=== PATIENT | female | born 1995 | race Caucasian/White ===

== ENCOUNTER → 2018-04-07 | Outpatient (REF) | payer OTHER | LOC: M LAB REF 10:02 | PROVIDERS: ATTEND Physician Assistant | DX: J09.X2 Influenza due to identified novel influenza A virus with other respiratory manifestations (principal) ==

== ENCOUNTER → 2018-04-12 | Outpatient (CLI) | payer OTHER ==
[2018-04-12 17:15] LABS: MEAN CORPUSCULAR HEMOGLOBIN 30.7 pg (27.0-33.0); MEAN CORPUSCULAR HGB CONC 34.6 g/dl (32.0-36.5); MEAN CORPUSCULAR VOLUME 88.6 fl (80.0-96.0); PLATELET COUNT, AUTOMATED 333 10^3/uL (150-450); RED BLOOD COUNT 5.87 10^6/uL (4.00-5.40); WHITE BLOOD COUNT 9.5 10^3/uL (4.0-10.0)
[2018-04-12 17:45] LABS: ALBUMIN 4.5 GM/DL (3.2-5.2); ALT/SGPT 75 U/L (12-78); AMYLASE 55 U/L (25-115); BILIRUBIN,TOTAL 0.9 MG/DL (0.2-1.0); BLOOD UREA NITROGEN 9 MG/DL (7-18); CALCIUM LEVEL 9.2 MG/DL (8.5-10.1); CARBON DIOXIDE LEVEL 23 MEQ/L (21-32); CHLORIDE LEVEL 97 MEQ/L (98-107); FREE T4 2.26 NG/DL (0.76-1.46); GLOMERULAR FILTRATION RATE > 60.0 (>60); GLUCOSE, FASTING 78 MG/DL (70-100); LIPASE 244 U/L (73-393); SODIUM LEVEL 135 MEQ/L (136-145); TOTAL PROTEIN 9.1 GM/DL (6.4-8.2)
[2018-04-12 18:28] LABS: ATYPICAL LYMPH 6 % (0-5); EOSINOPHILS 2 % (0-5); LYMPHOCYTES 30 % (16-52); MONOCYTES 10 % (0-8); NEUTROPHILS 51 % (35-75)
[2018-04-12 18:29] LABS: PLATELET ESTIMATE NORMAL (NORMAL)
== END ==
LOC: M WUC 14:43
PROVIDERS: ATTEND Physician Assistant
DX: R11.2 Nausea with vomiting, unspecified (principal)

== ENCOUNTER 2020-02-19 11:39 | Emergency (ER) | payer BC, OTHER, MEDICAID ==
[~2020-02-19] VITALS: Ht 160 cm; Wt 75.8 kg
[2020-02-19 13:03] LABS: HEMATOCRIT 38.5 % (36.0-47.0); HEMOGLOBIN 12.7 g/dl (12.0-15.5); PLATELET COUNT, AUTOMATED 307 10^3/uL (150-450); RED BLOOD COUNT 4.23 10^6/uL (4.00-5.40); WHITE BLOOD COUNT 11.3 10^3/uL (4.0-10.0)
[2020-02-19] MEDS ORDERED: NS 1,000 ML IV ONE (13:30)
[2020-02-19] MEDS ORDERED: ONDANSETRON 4MG/2ML VIAL IV ONE (13:30)
[2020-02-19 13:55] LABS: BLOOD UREA NITROGEN 7 MG/DL (7-18); CALCIUM LEVEL 9.6 MG/DL (8.5-10.1); CARBON DIOXIDE LEVEL 22 MEQ/L (21-32); CHLORIDE LEVEL 102 MEQ/L (98-107); GLOMERULAR FILTRATION RATE > 60.0 (>60); GLUCOSE, FASTING 80 MG/DL (70-100); HCG, SERUM QUANTITATIVE 106387 MIU/ML; POTASSIUM SERUM 4.2 MEQ/L (3.5-5.1); SODIUM LEVEL 135 MEQ/L (136-145)
[2020-02-19 14:31] VITALS: BP 108/69
[2020-02-19] MEDS ORDERED: ONDA8TAB8 PO (14:34)
[2020-02-19] MEDS ORDERED: SUCR1TA PO (14:34)
--- NOTE | 2020-02-20 13:28 | ECGEPIP ---
[facility] - ED Test Date: 2020-02-19 Pat Name: YAHIR CAMERON Department: Room: - Gender: Female Top Precipitator Operator: CIERA : 1995 Requested By: CATRACHITO Damian Order Number: [id number] Reading MD: Nevin Travis Measurements Intervals Dennis Rate: 61 P: 40 FL: 125 QRS: 27 QRSD: 85 T: 15 QT: 391 QTc: 397 Interpretive Statements SINUS RHYTHM WITH MARKED SINUS ARRHYTHMIA No prior Electronically Signed on 02-20-2020 13:28:00 EST by Nevin Travis
== END 2020-02-19 14:43 | disposition home or self-care (01) ==
LOC: M ED 11:39
DX: O21.9 Vomiting of pregnancy, unspecified (principal); O99.331 Smoking (tobacco) complicating pregnancy, first trimester; O99.311 Alcohol use complicating pregnancy, first trimester; Z3A.09 9 weeks gestation of pregnancy; Z88.8 Allergy status to other drugs, medicaments and biological substances
CPT/HCPCS: 80048; 84702; 85027; 93005; 96361; 96374; 99284; J2405

== ENCOUNTER → 2020-03-06 | Outpatient (CLI) | payer BC, OTHER, MEDICAID ==
[~2020-03-06] MED LIST: ONDA8TAB8 PO; SUCR1TA PO
[2020-03-06 17:42] LABS: BASO % 0.2 % (0.0-1.0); EOS # 0.2 10^3/uL (0.0-0.5); EOS % 1.7 % (0.0-3.0); HEMATOCRIT 36.7 % (36.0-47.0); HEMOGLOBIN 12.2 g/dl (12.0-15.5); LYMPH % 20.5 % (24.0-44.0); MEAN CORPUSCULAR HEMOGLOBIN 30.8 pg (27.0-33.0); MEAN CORPUSCULAR HGB CONC 33.2 g/dl (32.0-36.5); MEAN CORPUSCULAR VOLUME 92.7 fl (80.0-96.0); MONO # 0.6 10^3/uL (0.0-0.8); MONO % 6.2 % (0.0-5.0); NEUTROPHILS # 7.1 10^3/uL (1.5-8.5); PLATELET COUNT, AUTOMATED 242 10^3/uL (150-450); RED BLOOD COUNT 3.96 10^6/uL (4.00-5.40)
[2020-03-06 18:57] LABS: HIV 1&2 SCREEN CENTAUR NEGATIVE (NEGATIVE)
== END ==
LOC: M LAB 16:35
PROVIDERS: ATTEND Advanced Practice Midwife
DX: O03.9 Complete or unspecified spontaneous abortion without complication (principal); Z3A.00 Weeks of gestation of pregnancy not specified

== ENCOUNTER 2020-03-12 08:39 | Day surgery (SDC) | payer BC, OTHER, MEDICAID ==
[~2020-03-12] VITALS: Ht 160 cm; Wt 77.6 kg
--- OUTSIDE RECORDS SUMMARY | 2020-03-12 08:48 | CCD ---
Author Author [facility] Organization [facility] Address Unknown Phone Unavailable Support Name Relationship Address Phone DPAO Next Of Kin [address] [place] [address] RCIL Next Of Kin [address] [place] [address] RIGO CAMERON Next Of Kin [address] [place] [address] ST Next Of Kin Unknown Unavailable ETH[place] [address] Rigo Cameron ECON [address] [place], [place] Unavailable Re-disclosure Warning The records that you are about to access may contain information from federally-assisted alcohol or drug abuse programs. If such information is present, then the following federally mandated warning applies: This information has been disclosed to you from records protected by federal confidentiality rules (42 CFR part 2). The federal rules prohibit you from making any further disclosure of this information unless further disclosure is expressly permitted by the written consent of the person to whom it pertains or as otherwise permitted by 42 CFR part 2. A general authorization for the release of medical or other information is NOT sufficient for this purpose. The Federal rules restrict any use of the information to criminally investigate or prosecute any alcohol or drug abuse patient.The records that you are about to access may contain highly sensitive health information, the redisclosure of which is protected by Article 27-F of the [facility] Public Health law. If you continue you may have access to information: Regarding HIV / AIDS; Provided by facilities licensed or operated by the [facility] Office of Mental Health; or Provided by the [facility] Office for People With Developmental Disabilities. If such information is present, then the following [facility] mandated warning applies: This information has been disclosed to you from confidential records which are protected by state law. State law prohibits you from making any further disclosure of this information without the specific written consent of the person to whom it pertains, or as otherwise permitted by law. Any unauthorized further disclosure in violation of state law may result in a fine or detention sentence or both. A general authorization for the release of medical or other information is NOT sufficient authorization for further disc losure. Family History Family Member Name Family Member Gender Family Member Status Date o f Status Description Data Source(s) Unknown Unknown Problem MEDENT ([facility]) Unknown Unknown Problem MEDENT ([facility]) Encounters Encounter Providers Location Date Indications Data Source(s ) Unknown [address] [facility] [address] 03/06/2020 12:00:00 AM EST eCW1 ([facility]) Unknown [address] [facility] [address] 03/06/2020 12:00:00 AM EST eCW1 ([facility]) (YUDELKA SILVERMAN) [facility] OB Visit [address] [place] [address] 02/27/2020 12:00:00 AM EST eCW1 ([facility]) Medications Medication Brand Name Start Date Product Form Dose Route Admi nistrative Instructions Pharmacy Instructions Status Indications Reaction Description Data Source(s) Misoprostol 0.2 MG Oral Tablet Misoprostol 200 MCG Misoprost ol 200 MCG 03/06/2020 12:00:00 AM EST 3.0 {tablets} active Misoprostol 200 MCG eCW1 ([facility]) Misoprostol 0.2 MG Oral Tablet Misoprostol 200 MCG Misoprost ol 200 MCG 03/06/2020 12:00:00 AM EST 3.0 {tablets} active Misoprostol 200 MCG eCW1 ([facility]) 1 gram 02/19/2020 12:00:00 AM EST tablet 40 TAKE ONE TABLET BY MOUTH FOUR TIMES A DAY TAKE ONE TABLET BY MOUTH FOUR TIMES A DAY SOLD: 02/19/2020 [facility] 8 mg 02/19/2020 12:00:00 AM EST tablet,disintegrating [address] ONE TABLET UNDER THE TONGUE EVERY 6 HOURS NEEDED FOR NAUSEA AND VOMITING PLACE ONE TABLET UNDER THE TONGUE EVERY 6 HOURS NEEDED FOR NAUSEA AND VOMITING SOLD: 02/19/2020 [facility] Insurance Providers Payer name Policy type / Coverage type Policy ID Covered green party ID Covered green party's relationship to tony Policy Tony Plan Information BCBS EMPIRE NILE DIV [id number] [id number] UNITED HEALTHCARE [id number] [id number] EMEDNY [id number] SP [id number] BCBS EMPIRE NILE DIV [id number] [id number] UNITED HEALTHCARE [id number] [id number] [employer] [place] Commercial [id number] Family Depende nt [id number] [employer] [place] Commercial [id number] Family Depende nt [id number] ANSI-Commercial [id number] ANSI-Commercial [id number] BCBS EMPIRE BC [id number] CHILD [id number] PGBA [place] [id number] FA2 [id number] UNITED HEALTHCARE COMM [id number] CHILD [id number] SELF PAY SP UNAVAILABLE S UNAVAILA BLE [employer] [place] [id number] S [id number] Pupil Benefits Plan, Inc Commercial Family Depende nt Health Net Federal Servic Medigap Part B Family De pendent [employer] Health Maintenance Organization (HMO) Family Dependent [facility] WC [id number] S [id number] ACTIVE DUTY [id number] FA2 [id number] N REGIONAL CLAIMS PAULA-O/P [id number] 01 [id number] EMPIRE UNITEDHEALTHCARE-O/P [id number] 19 [id number] HEALTHNET/ AD S [id number] EMPIRE (STATE EMP) P [id number] C [id number] EMPIRE (STATE EMP) P UNAVAILABLE C UNAVAILABLE UNITED HEALTHCARE-O/P [id number] 19 [id number] Problems, Conditions, and Diagnoses Code Display Name Description Problem Type Effective Dates Data Source(s) Z34.80 care Supervision of other normal P lucho 02/24/2020 12:00:00 AM EST eCW1 ([facility]) Social History Code Duration Value Status Description Data Source(s ) Smoking 02/27/2020 12:00:00 AM EST Former Smoker completed Former Smoker eCW1 ([facility]) Smoking 02/27/2020 12:00:00 AM EST Former Smoker completed Former Smoker eCW1 ([facility]) Smoking 02/27/2020 12:00:00 AM EST Former Smoker completed Former Smoker eCW1 ([facility]) Vital Signs ID Date Data Source UNK Name Value Range Interpretation Code Description Data Source(s) Diastolic blood pressure 70 mm[Hg] 70 mm[Hg] eCW1 ([facility]) Systolic blood pressure 114 mm[Hg] 114 mm[Hg] e CW1 ([facility]) Body mass index (BMI) [Ratio] 44.722 kg/m2 44.7 22 kg/m2 W1 ([facility]) Body height [in_i] eCW1 ([facility]) Body weight 78.02 kg 78.02 kg W1 ([facility]) Body weight 172.0 [lb_av] 172.0 [lb_av] eCW1 (Replaced by [facility]) Patient Treatment Plan of Care Planned Activity Planned Date Details Description Data Source (s) Misoprostol 0.2 MG Oral Tablet 03/06/2020 12:00:00 AM EST eCW1 ([facility]) Misoprostol 0.2 MG Oral Tablet 03/06/2020 12:00:00 AM EST eCW1 ([facility])
--- OUTSIDE RECORDS SUMMARY | 2020-03-12 08:48 | CCD ---
Author Author [facility] Organization [facility] Address Unknown Phone Unavailable Care Team Providers Care Diagnostics Tech Name Role Phone Cecilianatalee Anya Unavailable PROBLEMS Type Condition ICD9-CM Code [id number] Code Onset Dates Condition S tatus SNOMED Code Notes Problem Other general medical examination for administrative purpo ses V70.3 Active 51274716 Problem Supervision of other normal Z34.80 Ac tive 033485475 ALLERGIES Allergen (clinical drug ingredient) Drug/Non Drug Allergy do cumented on EMR Reaction Allergy Type Onset Date Status benzocaine Uewt-T-Vyqiyjp Hives Drug Allergy Active ENCOUNTERS from 1994 to 2020-03-04 Encounter Location Date Provider Diagnosis [facility] [address] [place] [address] Feb, Anya Monroe Normal first preg grace in first trimester Z34.01 and 11 weeks gestation of Z3A.11 IMMUNIZATIONS Vaccine Route Administration Date Status IPV 0.5mL (Polio) Unknown Apr 18, 1997 Administered Hepatitis B Ped & Adol 0.5mL (Engerix-B) Unknown Oct Administered Hepatitis B Ped & Adol 0.5mL (Engerix-B) Unknown Apr 18, 1995 Administered Hepatitis B Ped & Adol 0.5mL (Engerix-B) Unknown Oct 07, 1996 Administered MMR 0.5mL Unknown Oct 05, 1995 Administered IPV 0.5mL (Polio) Unknown 1994 Administered IPV 0.5mL (Polio) Unknown Jan 27, 1997 Administered DTAP 0.5mL (Infanrix) Unknown 1994 Administer ed HPV9 0.5mL (Gardasil 9) Unknown Nov 07, 2007 Administ ered Meningococcal 0.5mL (Menveo Groups A,C,Y & W-135) IM Intramuscul ar Dec 26, 2017 Administered TDAP 0.5mL (Boostrix) IM Intramuscular Dec 26, 2017 Administe red Influenza (6mo & up) Fluzone IM Intramuscular Dec 11, 2012 Ad ministered HIB 0.5mL Unknown Oct 07, 1996 Administered HIB 0.5mL Unknown Apr 18, 1995 Administered HIB 0.5mL Unknown Feb 06, 1995 Administered HIB 0.5mL Unknown 1994 Administered DTAP 0.5mL (Infanrix) Unknown Oct 07, 1996 Administer ed DTAP 0.5mL (Infanrix) Unknown Apr 18, 1995 Administer ed DTAP 0.5mL (Infanrix) Unknown Jan 27, 1995 Administer ed SOCIAL HISTORY Tobacco Use: Social History Observation Description Date Details (start date - stop date) Former Smoker Sex Assigned At : Social History Observation Description Sex Assigned At Unknown Sexual Hx: Question Answer Notes Had sex in the last 12 months (vaginal, oral, or anal)? Yes with Men only Alcohol Screening: Question Answer Notes Did you have a drink containing alcohol in the past year? Ye s Points 2 Interpretation Negative How often did you have six or more drinks on one occas ion in the past year? Never (0 points) How many drinks did you have on a typica l day when you were drinking in the past year? 3 or 4 (1 point) How often did you have a drink containing alcohol in t he past year? Monthly or less (1 point) Tobacco Use: Question Answer Notes Are you a: former smoker How long has it been since you last smoked? 1-3 months REASON FOR REFERRAL No Information VITAL SIGNS Weight 172.0 lbs Feb, Weight-kg 78.02 kg Feb, Height 5'2" in Feb, BMI 44.722 kg/m2 Feb, Blood pressure systolic 114 mm Hg Feb, Blood pressure diastolic 70 mm Hg Feb, MEDICATIONS Medication SIG (Take, Route, Frequency, Duration) Notes Start Da te End Date Status 27-1 MG 1 tablet Orally Once a day Active Sucralfate 1 GM 1 tablet on an empty stomach Orally Twice a day Active PROCEDURES No Information RESULTS No Results REASON FOR VISIT 1ST PN MEDICAL (GENERAL) HISTORY Type Description Date Medical History shingles Medical History MRSA Surgical History teeth extraction Feb 2013 Goals Section No Information Health Concerns No Information MEDICAL EQUIPMENT No Information MENTAL STATUS No Information FUNCTIONAL STATUS No Information ASSESSMENTS Encounter Date Diagnosis Assessment Notes Treatment Notes Treatm ent Clinical Notes Feb, Normal first in first trimester (ICD-1 0 - Z34.01) Feb, 11 weeks gestation of (ICD-10 - Z3A.11 ) PLAN OF TREATMENT Next Appt Details 2 Weeks Reason:Dr Horan Provider Name:Harsh Horan, 07:30:00 AM, [address] [place], [address], Follow Up:2 WeeksDr Marline Insurance Providers Payer Name Payer Address Payer Phone Insured Name Patient Relati onship to Insured Coverage Start Date Coverage End Date [facility] [address] [facility] [id number] [employer] [place] [employer] [address] [facility] [id number] YAHIR CAMERON self
--- OUTSIDE RECORDS SUMMARY | 2020-03-12 08:48 | CCD ---
Author Author [facility] Organization [facility] Address Unknown Phone Unavailable Care Team Providers Care Magnetic Prospecting Supervisor Name Role Phone Anya Monroe Unavailable PROBLEMS Type Condition ICD9-CM Code ONC30-QR Code Onset Dates Condition S tatus SNOMED Code Notes Problem Other general medical examination for administrative purpo ses V70.3 Active [id number] Problem Supervision of other normal Z34.80 Ac tive [id number] ALLERGIES Allergen (clinical drug ingredient) Drug/Non Drug Allergy do cumented on EMR Reaction Allergy Type Onset Date Status benzocaine Dsxe-F-Flfijyr Hives Drug Allergy Active ENCOUNTERS from 1994 to 2020-03-06 Encounter Location Date Provider Diagnosis [facility] [address] [place] [address] Feb, Anya Monroe Miscarriage O03.9 IMMUNIZATIONS Vaccine Route Administration Date Status IPV [...] REASON FOR REFERRAL No Information VITAL SIGNS No information MEDICATIONS Medication SIG (Take, Route, Frequency, Duration) Notes Start Da te End Date Status 27-1 MG 1 tablet Orally Once a day Active Misoprostol 200 MCG 3 tablets vaginally once for 1 day(s) Feb, Active Sucralfate 1 GM 1 tablet on an empty stomach Orally Twice a day Active PROCEDURES No Information RESULTS No Results REASON FOR VISIT MAB MEDICAL (GENERAL) HISTORY Type Description Date Medical History shingles Medical History MRSA Surgical History teeth extraction Feb 2013 Goals Section No Information Health Concerns No Information MEDICAL EQUIPMENT No Information MENTAL STATUS No Information FUNCTIONAL STATUS No Information ASSESSMENTS Encounter Date Diagnosis Assessment Notes Treatment Notes Treatm ent Clinical Notes Feb, Miscarriage (ICD-10 - O03.9) PLAN OF TREATMENT Medication Medication Name Sig Start Date Stop Date Misoprostol 200 MCG 3 tablets vaginally once for 1 day(s) Feb Next Appt Details Provider Name:Harsh Horan, 07:30:00 AM, [address] [place], [address], Insurance Providers Payer Name Payer Address Payer Phone Insured Name Patient Relati onship to Insured Coverage Start Date Coverage End Date [facility] [address] [facility] [id number] [employer] [place] [employer] [address] [facility] [id number] YAHIR CAMERON self
--- OUTSIDE RECORDS SUMMARY | 2020-03-12 08:48 | CCD ---
Author Author [facility] Organization [facility] Address Unknown Phone Unavailable Care Team Providers Care Conveyor Console Operator Name Role Phone Anya Monroe Unavailable PROBLEMS Type Condition ICD9-CM Code ULV05-SG Code Onset Dates Condition S tatus SNOMED Code Notes Problem Other general medical examination for administrative purpo ses V70.3 Active 61062715 Problem Supervision of other normal Z34.80 Ac tive [id number] ALLERGIES Allergen (clinical drug ingredient) Drug/Non Drug Allergy do cumented on EMR Reaction Allergy Type Onset Date Status benzocaine Huzj-Y-Qvtdowe Hives Drug Allergy Active ENCOUNTERS from 1994 to 2020-03-07 Encounter Location Date Provider Diagnosis [facility] [address] [place] [address] Feb, Anya Fer Miscarriage O03.9 IMMUNIZATIONS Vaccine Route Administration Date [...] Information RESULTS No Results REASON FOR VISIT No Information MEDICAL (GENERAL) HISTORY Type Description Date Medical [...] Details Provider Name:Harsh Horan, 07:30:00 AM, [address] [place], [address], Insurance Providers Payer Name Payer Address Payer Phone Insured Name Patient Relati onship to Insured Coverage Start Date Coverage End Date MEDICAID [employer] [address] [facility] [id number] YAHIR CAMERON [facility] [address] [facility] [id number] [employer]EE[employer] [place]
[2020-03-12] MEDS ORDERED: DOXYCYCLINE HYCLATE 100 MG in D5W MINI-BAG PLUS 100 ML IV ONE (09:30)
[2020-03-12 09:38] LABS: HEMATOCRIT 35.6 % (36.0-47.0); HEMOGLOBIN 12.2 g/dl (12.0-15.5); MEAN CORPUSCULAR HEMOGLOBIN 31.2 pg (27.0-33.0); MEAN CORPUSCULAR HGB CONC 34.3 g/dl (32.0-36.5); PLATELET COUNT, AUTOMATED 262 10^3/uL (150-450); RED BLOOD COUNT 3.91 10^6/uL (4.00-5.40); WHITE BLOOD COUNT 9.9 10^3/uL (4.0-10.0)
[2020-03-12] MEDS ORDERED: ONDANSETRON 4MG/2ML VIAL As Ordered ONE ×2 (10:38→12:36)
[2020-03-12] MEDS ORDERED: ONDANSETRON 4MG/2ML VIAL IV ONE (10:45)
[2020-03-12] MEDS ORDERED: fentaNYL 100 MCG/2 ML INJECTION (J3010) As Ordered ONE ×2 (10:51→12:36)
[2020-03-12] MEDS ORDERED: LIDOCAINE 2% 100MG/5ML SDV (FOR ANES.) As Ordered ONE (10:51)
[2020-03-12] MEDS ORDERED: SUCCINYLCHOLINE 100 MG/5 ML SYRINGE (J0330) As Ordered ONE (10:51)
[2020-03-12] MEDS ORDERED: propofoL 200 MG/20 ML VIAL As Ordered ONE (10:51)
[2020-03-12] MEDS ORDERED: MIDAZOLAM INJ 2MG/2ML VIAL (J2250 PER 1MG) As Ordered ONE (10:51)
[2020-03-12] MEDS ORDERED: SILVER NITRATE APPLICATOR As Ordered ONE (11:54)
[2020-03-12] MEDS ORDERED: dexameTHASONE 4 MG/ML 1ML VIAL (J1100 PER 1MG) As Ordered ONE (12:36)
[2020-03-12] MEDS ORDERED: fentaNYL 100 MCG/2 ML INJECTION (J3010) IV PRN (13:30)
[2020-03-12] MEDS ORDERED: LR 1,000 ML IV SCH ×2 (13:30→13:45)
[2020-03-12] MEDS ORDERED: HYDROMORPHONE HCL 0.5 MG/ 0.5 ML SYRINGE (J1170 PER 1) IV PRN (13:30)
[2020-03-12] MEDS ORDERED: oxyCODONE 5MG TAB PO PRN (13:30)
[2020-03-12] MEDS ORDERED: ONDANSETRON 4MG/2ML VIAL IV PRN (13:30)
[2020-03-12] MEDS ORDERED: DOXYCYCLINE HYCLATE 100MG TABLET PO ONE (13:45)
[2020-03-12 14:30] VITALS: BP 122/57
--- NOTE | 2020-03-12 19:23 | ROOPDOC ---
[facility] Report Of Operation Report of Operation DATE OF PROCEDURE: 03/12/2020 PREPROCEDURE DIAGNOSES: First trimester miscarriage, missed . POSTPROCEDURE DIAGNOSES: Same. PROCEDURE: Suction D&C. SURGEON: Dank Horan DO FACOG PHOTOGRAMMETRIC TECH: none ANESTHESIA: General via LMA ESTIMATED BLOOD LOSS: Approximately 200 mL. IV FLUIDS REPLACED: 1200 mL LR UOP: in and out cath, 50 mL COMPLICATIONS: none. SPECIMENS: products of conception, intrauterine tissue. PREOPERATIVE / PROPHYLACTIC ANTIBIOTIC: Doxycycline 100mg IV x1. DESCRIPTION OF PROCEDURE: The patient was counseled, consented on the risks, benefits, indications and alternatives procedure. Informed consent was obtained. She was taken to the operating room with an IV running and placed on the operating table in dorsal supine position. Gen. anesthesia was administered and the airway was secured without any difficulty. She was prepared and draped in the normal sterile fashion. She was placed in the high lithotomy position. A time out was performed per protocol. The bladder was drained with a sterile in and out catheter. Sterile speculum was placed with good visualization of the cervix. The cervix was grasped with a single-tooth tenaculum at the anterior lip and downward traction was applied. The cervix was sequentially dilated with Ashu dilators up to a #20. A size 8 curved Vacurette was placed trans-cervically into the intrauterine cavity. Suction was activated. Tissue and blood return was consistent with products of conception. After removal of the Vacurette, a sharp curettage was performed with minimal tissue and blood return. Minimal bleeding from the cervical os was noted. The patient's vitals were normal and stable. The decision was made to conclude the procedure. Single-tooth tenaculum was removed from the cervix and the tenaculum sites were noted to be hemostatic. Again, minimal bleeding from the cervical os was noted. All instruments were removed from the vagina. Sponge and instrument counts were correct per protocol. The patient was transferred to the PACU in good and stable condition. Dank Horan DO FACOG. DANK HORAN DO Mar 12, 2020 19:23
== END 2020-03-12 14:32 | disposition home or self-care (01) ==
LOC: M SDC 08:39
PROVIDERS: ATTEND Obstetrics & Gynecology
DX: O01.9 Hydatidiform mole, unspecified (principal); Z88.8 Allergy status to other drugs, medicaments and biological substances
CPT/HCPCS: 59812; 85027; 86850; 86900; 86901; 88305; J0330; J1100; J2250; J2405; J3010; U0002

== ENCOUNTER → 2020-03-24 | Outpatient (CLI) | payer BC, OTHER, MEDICAID | LOC: M PLALAB 12:56 | PROVIDERS: ATTEND Obstetrics & Gynecology | DX: O01.1 Incomplete and partial hydatidiform mole (principal) ==

== ENCOUNTER → 2020-03-31 | Outpatient (REF) | payer OTHER, MEDICAID | LOC: M PLALAB 13:16 | PROVIDERS: ATTEND Obstetrics & Gynecology | DX: O01.1 Incomplete and partial hydatidiform mole (principal) ==

== ENCOUNTER → 2020-04-08 | Outpatient (REF) | payer OTHER, MEDICAID ==
[2020-04-08 11:21] LABS: APPEARANCE, URINE CLEAR (CLEAR); BACTERIA, URINE AUTO NEGATIVE (NEGATIVE); BILIRUBIN, URINE AUTO NEGATIVE (NEGATIVE); BLOOD, URINE BLOOD 1+ (NEGATIVE); COLOR, URINE STRAW (YELLOW); GLUCOSE, URINE (UA) AUTO NEGATIVE (NEGATIVE); KETONE, URINE AUTO NEGATIVE (NEGATIVE); LEUKOCYTE ESTERASE, URINE AUTO TRACE (NEGATIVE); NITRITE, URINE AUTO NEGATIVE (NEGATIVE); PROTEIN, URINE AUTO NEGATIVE (NEGATIVE); RBC, URINE AUTO 2 /HPF (0-3); SPECIFIC GRAVITY URINE AUTO 1.004 (1.002-1.035); SQUAMOUS EPITHELIAL CELL UR AU 2 /HPF (0-6); UROBILINOGEN, URINE AUTO 0.2 mg/dL (0.0-2.0); WBC, URINE AUTO 1 /HPF (0-3)
== END ==
LOC: M PLALAB 08:37
PROVIDERS: ATTEND Obstetrics & Gynecology
DX: O01.1 Incomplete and partial hydatidiform mole (principal); R30.0 Dysuria

== ENCOUNTER → 2020-05-05 | Outpatient (REF) | payer OTHER, MEDICAID | LOC: M PLALAB 12:08 | PROVIDERS: ATTEND Obstetrics & Gynecology | DX: O01.1 Incomplete and partial hydatidiform mole (principal) ==

== ENCOUNTER → 2020-05-18 | Outpatient (REF) | payer OTHER, MEDICAID | LOC: M SFHCWAGY 17:16 | PROVIDERS: ATTEND Nurse Practitioner Women's Health | DX: R10.2 Pelvic and perineal pain (principal) ==

== ENCOUNTER → 2020-05-21 | Outpatient (CLI) | payer BC, MEDICAID ==
--- NOTE | 2020-05-21 10:44 | REP ---
INDICATION: R10.2 PELVIC PAIN. COMPARISON: None. TECHNIQUE: Transabdominal and endovaginal probes were utilized for the examination. Bilateral ovarian Doppler and color imaging also performed because of recent onset pelvic pain. FINDINGS: The bladder measures 7.9 x 4.6 x 2.9 cm. Uterus is anteverted. It measures 7.9 x 3.7 x 4.4 cm. Endometrial stripe has a thickness of 9 mm on the Ev probe. There is a somewhat heterogeneous appearance of the uterus with a hypoechoic area in the left fundus 1.8 x 1.2 x 0.7 cm other areas of the are not measurable. No fluid in the endometrial cavity or endocervical canal. Indentation on the anterior margin of the endometrium by a presumed subserosal fibroid noted. No fluid in the cul-de-sac. The right ovary is 3.3 x 1.6 x 1.5 cm without a mass or focal lesion and with normal color flow and Doppler tracing. Left ovary measures 3.9 x 2.5 x 2.7 cm. Within is a simple cyst 2.5 x 1.8 x 1.7 cm. There is no adjacent free fluid. Color flow and Doppler tracings are normal. IMPRESSION: 1. Heterogeneous uterus which is not enlarged. It appears anteverted and there is a fundal fibroid on the left 1.8 x 1.2 x 0.7 cm there also appears to be subserosal fibroid impressing the endometrium but no endometrial mass, fluid in the endometrial cavity or endocervical canal. 2. A 2.5 x 1.8 cm simple cyst left ovary. No pelvic free fluid. Ovaries otherwise normal and with normal color flow and Doppler. <Electronically signed by Judd Park > 05/21/20 [id number]
== END ==
LOC: M WHC 09:47
PROVIDERS: ATTEND Nurse Practitioner Women's Health
DX: R10.2 Pelvic and perineal pain (principal)

== ENCOUNTER → 2020-06-04 | Outpatient (REF) | payer OTHER, MEDICAID | LOC: M PLALAB 11:33 | PROVIDERS: ATTEND Obstetrics & Gynecology | DX: O01.1 Incomplete and partial hydatidiform mole (principal) ==

== ENCOUNTER → 2020-06-23 | Outpatient (REF) | payer OTHER, MEDICAID | LOC: M PLALAB 15:27 | PROVIDERS: ATTEND Obstetrics & Gynecology | DX: Z32.01 Encounter for pregnancy test, result positive (principal) ==

== ENCOUNTER → 2020-06-25 | Outpatient (REF) | payer OTHER, MEDICAID | LOC: M PLALAB 15:00 | PROVIDERS: ATTEND Obstetrics & Gynecology | DX: Z32.01 Encounter for pregnancy test, result positive (principal) ==

== ENCOUNTER 2020-07-12 07:29 | Emergency (ER) | payer MEDICAID, OTHER ==
[~2020-07-12] VITALS: Ht 160 cm; Wt 73.6 kg
[2020-07-12] MEDS ORDERED: B-12100T2 PO (07:39)
[2020-07-12] MEDS ORDERED: FAMO40TA3 (07:39)
[2020-07-12] MEDS ORDERED: ONDANSETRON 4MG/2ML VIAL IV ONE (08:00)
[2020-07-12] MEDS ORDERED: NS 1,000 ML IV ONE (08:00)
[2020-07-12 08:31] LABS: BASO % 0.2 % (0.0-1.0); EOS # 0.1 10^3/uL (0.0-0.5); EOS % 0.8 % (0.0-3.0); HEMATOCRIT 40.3 % (36.0-47.0); HEMOGLOBIN 13.8 g/dl (12.0-15.5); LYMPH # 1.9 10^3/uL (1.5-5.0); LYMPH % 15.6 % (24.0-44.0); MEAN CORPUSCULAR HEMOGLOBIN 30.5 pg (27.0-33.0); MEAN CORPUSCULAR HGB CONC 34.2 g/dl (32.0-36.5); MEAN CORPUSCULAR VOLUME 89.2 fl (80.0-96.0); MONO # 0.8 10^3/uL (0.0-0.8); MONO % 6.4 % (2.0-8.0); NEUTROPHILS # 9.4 10^3/uL (1.5-8.5); NEUTROPHILS % 76.8 % (36.0-66.0); PLATELET COUNT, AUTOMATED 323 10^3/uL (150-450); RED BLOOD COUNT 4.52 10^6/uL (4.00-5.40); WHITE BLOOD COUNT 12.2 10^3/uL (4.0-10.0)
--- NOTE | 2020-07-12 09:17 | REP ---
INDICATION: 7 weeks, right lower pelvic pain. COMPARISON: None. TECHNIQUE: Transabdominal scanning. FINDINGS: Scanning through the urine filled bladder and uterus demonstrates a single intrauterine gestation. The crown-rump length of the embryonic for pole is 0.5 cm. This corresponds with a 6 week 2 day gestational age estimate. heart rate is recorded at 122 beats per minute. No extra uterine abnormality is observed. IMPRESSION: Living single intrauterine gestation at 6 weeks 2 days by crown-rump length. JUDE by sonography 05 March 2021. No complication seen. <Electronically signed by Chato Salvador > 07/12/20 [id number]
[2020-07-12 09:21] LABS: BLOOD UREA NITROGEN 8 MG/DL (7-18); CALCIUM LEVEL 9.6 MG/DL (8.5-10.1); CARBON DIOXIDE LEVEL 21 MEQ/L (21-32); CHLORIDE LEVEL 107 MEQ/L (98-107); CREATININE FOR GFR 0.65 MG/DL (0.55-1.30); GLOMERULAR FILTRATION RATE > 60.0 (>60); GLUCOSE, FASTING 90 MG/DL (70-100); HCG, SERUM QUANTITATIVE 40188 MIU/ML; POTASSIUM SERUM 3.6 MEQ/L (3.5-5.1); SODIUM LEVEL 138 MEQ/L (136-145)
[2020-07-12] MEDS ORDERED: ONDA4TAB6 PO (10:05)
[2020-07-12 10:17] VITALS: BP 128/62
== END 2020-07-12 10:19 | disposition home or self-care (01) ==
LOC: M ED 07:29
DX: O21.0 Mild hyperemesis gravidarum (principal); Z3A.01 Less than 8 weeks gestation of pregnancy; Z79.899 Other long term (current) drug therapy
CPT/HCPCS: 76801; 80048; 81001; 84702; 85025; 87086; 96374; 99284; J2405; U0002

== ENCOUNTER 2020-07-24 04:29 | Emergency (ER) | payer MEDICAID ==
[~2020-07-24] VITALS: Ht 160 cm; Wt 76.7 kg
[~2020-07-24 04:29] MED LIST changes: +B-12100T2 PO; +FAMO40TA3; +ONDA4TAB6 PO
[2020-07-24] MEDS ORDERED: GNP28TAB2 PO (04:39)
[2020-07-24 06:03] LABS: BASO % 0.1 % (0.0-1.0); EOS # 0.1 10^3/uL (0.0-0.5); EOS % 0.5 % (0.0-3.0); HEMATOCRIT 37.6 % (36.0-47.0); HEMOGLOBIN 13.1 g/dl (12.0-15.5); LYMPH # 1.8 10^3/uL (1.5-5.0); MEAN CORPUSCULAR HEMOGLOBIN 30.6 pg (27.0-33.0); MEAN CORPUSCULAR HGB CONC 34.8 g/dl (32.0-36.5); MEAN CORPUSCULAR VOLUME 87.9 fl (80.0-96.0); MONO # 0.9 10^3/uL (0.0-0.8); MONO % 6.7 % (2.0-8.0); NEUTROPHILS # 10.8 10^3/uL (1.5-8.5); NEUTROPHILS % 79.3 % (36.0-66.0); PLATELET COUNT, AUTOMATED 301 10^3/uL (150-450); RED BLOOD COUNT 4.28 10^6/uL (4.00-5.40); WHITE BLOOD COUNT 13.7 10^3/uL (4.0-10.0)
[2020-07-24 06:30] LABS: HCG, SERUM QUALITATIVE POSITIVE (NEGATIVE)
[2020-07-24 06:33] LABS: ALBUMIN 4.2 GM/DL (3.2-5.2); ALT/SGPT 21 U/L (12-78); BILIRUBIN,DIRECT 0.1 MG/DL (0.0-0.2); BILIRUBIN,TOTAL 0.4 MG/DL (0.2-1.0); BLOOD UREA NITROGEN 8 MG/DL (7-18); CALCIUM LEVEL 9.6 MG/DL (8.5-10.1); CARBON DIOXIDE LEVEL 23 MEQ/L (21-32); CHLORIDE LEVEL 108 MEQ/L (98-107); CREATININE FOR GFR 0.56 MG/DL (0.55-1.30); GLOMERULAR FILTRATION RATE > 60.0 (>60); GLUCOSE, FASTING 93 MG/DL (70-100); LIPASE 122 U/L (73-393); POTASSIUM SERUM 3.9 MEQ/L (3.5-5.1); SODIUM LEVEL 138 MEQ/L (136-145)
[2020-07-24] MEDS ORDERED: NS 1,000 ML IV ONE (06:40)
[2020-07-24] MEDS ORDERED: ONDANSETRON 4MG/2ML VIAL IV ONE (06:40)
[2020-07-24] MEDS ORDERED: ONDA4TAB6 PO (08:16)
[2020-07-24 08:48] VITALS: BP 128/72
== END 2020-07-24 08:51 | disposition home or self-care (01) ==
LOC: M ED 04:29
DX: O21.0 Mild hyperemesis gravidarum (principal); Z3A.00 Weeks of gestation of pregnancy not specified; Z79.899 Other long term (current) drug therapy; Z88.8 Allergy status to other drugs, medicaments and biological substances; Z98.890 Other specified postprocedural states; Z86.14 Personal history of Methicillin resistant Staphylococcus aureus infection; Z87.59 Personal history of other complications of pregnancy, childbirth and the puerperium
CPT/HCPCS: 80048; 80076; 81001; 83690; 84703; 85025; 87086; 96374; 99284; J2405

== ENCOUNTER → 2020-08-14 | Outpatient (CLI) | payer MEDICAID, OTHER ==
[~2020-08-14] MED LIST changes: +GNP28TAB2 PO
== END ==
LOC: M PLALAB 09:45
PROVIDERS: ATTEND Specialist
DX: Z34.81 Encounter for supervision of other normal pregnancy, first trimester (principal)

== ENCOUNTER → 2020-09-18 | Outpatient (CLI) | payer MEDICAID ==
[2020-09-18 19:11] LABS: HEMATOCRIT 35.6 % (36.0-47.0); HEMOGLOBIN 12.2 g/dl (12.0-15.5); MEAN CORPUSCULAR HEMOGLOBIN 31.4 pg (27.0-33.0); MEAN CORPUSCULAR HGB CONC 34.3 g/dl (32.0-36.5); MEAN CORPUSCULAR VOLUME 91.5 fl (80.0-96.0); PLATELET COUNT, AUTOMATED 279 10^3/uL (150-450); RED BLOOD COUNT 3.89 10^6/uL (4.00-5.40); WHITE BLOOD COUNT 11.9 10^3/uL (4.0-10.0)
[2020-09-18 20:06] LABS: HEPATITIS C VIRUS ABY INDEX 0.1 INDEX (<0.8); HIV 1&2 SCREEN CENTAUR NEGATIVE (NEGATIVE)
[2020-09-18 20:29] LABS: GC DNA AMPLIFICATION NEGATIVE (NEGATIVE)
== END ==
LOC: M LAB 18:05
PROVIDERS: ATTEND Obstetrics & Gynecology
DX: Z34.91 Encounter for supervision of normal pregnancy, unspecified, first trimester (principal); Z3A.00 Weeks of gestation of pregnancy not specified

== ENCOUNTER → 2020-10-02 | Outpatient (CLI) | payer MEDICAID ==
--- NOTE | 2020-10-02 15:08 | REP ---
INDICATION: ANATOMY. COMPARISON: None. TECHNIQUE: Transabdominal ultrasound FINDINGS: Living female fetus in breech presentation showing heart rate of 143 beats per minute. Normal amniotic fluid. Placenta posterior grade 0. Marginal insertion of the cord. 3 vessels in the umbilical cord. Anatomic survey was complete and unremarkable except for suboptimal visualization of the nose/lips, four-chamber heart. The average gestational age was calculated from BPD 4.3 cm, head circumference 15.8 cm, abdominal circumference 13 point cm, femur length 2.7 cm, humerus length 2.7 cm. The average gestational age is 8 weeks and 5 days with JUDE 02/28/2021. The cervical length is 3.8 cm. IMPRESSION: Living intrauterine female fetus in breech presentation showing JUDE 02/28/2021. <Electronically signed by Isidro Dangelo > 10/02/20 [id number]
== END ==
LOC: M WHC 13:49
PROVIDERS: ATTEND Advanced Practice Midwife
DX: Z36.9 Encounter for antenatal screening, unspecified (principal); Z3A.08 8 weeks gestation of pregnancy

== ENCOUNTER → 2020-10-22 | Outpatient (CLI) | payer MEDICAID ==
--- NOTE | 2020-10-22 12:43 | REP ---
INDICATION: F/U/ ANATOMY. COMPARISON: October 02, 2020.. TECHNIQUE: Transabdominal obstetric sonography. FINDINGS: Scanning through the gravid uterus demonstrates a viable single intrauterine gestation in variable lie. motion is observed and heart rate is recorded at 152 beats per minute. A 2 posterior placenta is seen, grade 1, without evidence of placenta previa. Closed cervical length is measured at 3.9 cm transabdominally. No extrauterine abnormality is observed. Amniotic fluid is subjectively normal. Four-chamber heart, left and right ventricular outflow tract views, and nose and lips are visualized today and felt to be unremarkable. Biometry chart: BPD 5.1 cm, 21 weeks 2 days Head circumference 19.1 cm, 21 weeks 3 days Abdominal circumference 16.8 cm, 21 weeks 5 days Femur length 3.5 cm, 21 weeks 1 day Humeral length 3.5 cm, 22 weeks 1 day HC AC ratio normal 1.14 Cephalic index normal 0.73 Estimated weight 425 g, 0 lb 15 oz, 52nd percentile for 21 weeks 2 days IMPRESSION: Viable single intrauterine gestation at 21 weeks 4 days by today's composite sonographic criteria. JUDE by today's sonography 28 February 2021. No complication identified. Expected gestational age estimate from known JUDE of 02 March 2021 is 21 weeks 2 days. In conjunction with the prior obstetric sonography from October 02, 2020, anatomic survey is felt to be complete. <Electronically signed by Chato Salvador > 10/22/20 [id number]
== END ==
LOC: M WHC 11:13
PROVIDERS: ATTEND Advanced Practice Midwife
DX: O09.A2 Supervision of pregnancy with history of molar pregnancy, second trimester (principal); Z3A.21 21 weeks gestation of pregnancy

== ENCOUNTER → 2020-12-01 | Outpatient (CLI) | payer MEDICAID ==
[2020-12-01 15:29] LABS: HEMATOCRIT 35.8 % (36.0-47.0); HEMOGLOBIN 11.9 g/dl (12.0-15.5); MEAN CORPUSCULAR HEMOGLOBIN 30.7 pg (27.0-33.0); MEAN CORPUSCULAR HGB CONC 33.2 g/dl (32.0-36.5); MEAN CORPUSCULAR VOLUME 92.5 fl (80.0-96.0); PLATELET COUNT, AUTOMATED 281 10^3/uL (150-450); RED BLOOD COUNT 3.87 10^6/uL (4.00-5.40); WHITE BLOOD COUNT 13.5 10^3/uL (4.0-10.0)
[2020-12-01 16:59] LABS: GC DNA AMPLIFICATION NEGATIVE (NEGATIVE)
== END ==
LOC: M PLALAB 12:30
PROVIDERS: ATTEND Obstetrics & Gynecology
DX: Z36.89 Encounter for other specified antenatal screening (principal)

== ENCOUNTER → 2020-12-17 | Outpatient (CLI) | payer MEDICAID | LOC: M LAB 06:57 | PROVIDERS: ATTEND Obstetrics & Gynecology | DX: Z36.89 Encounter for other specified antenatal screening (principal); Z3A.27 27 weeks gestation of pregnancy ==

== ENCOUNTER → 2021-05-27 | Outpatient (REF) | payer MEDICAID, OTHER ==
[~2021-05-27] MED LIST changes: +ACET-907 PO; +ACET500P3 PO; +IBUP80TA PO; +PERCOCET PO
== END ==
LOC: M SFHCWAGY 16:56
PROVIDERS: ATTEND Obstetrics & Gynecology
DX: Z12.4 Encounter for screening for malignant neoplasm of cervix (principal)

== ENCOUNTER → 2021-12-06 | Outpatient (REF) | payer OTHER | LOC: M LAB REF 16:31 | PROVIDERS: ATTEND Nurse Practitioner Family | DX: J02.9 Acute pharyngitis, unspecified (principal) ==

== ENCOUNTER → 2022-02-24 | Outpatient (REF) | payer OTHER ==
[2022-02-24 19:05] LABS: GC DNA AMPLIFICATION NEGATIVE (NEGATIVE)
== END ==
LOC: M LAB REF 16:25
PROVIDERS: ATTEND Nurse Practitioner Family
DX: N89.8 Other specified noninflammatory disorders of vagina (principal); R31.9 Hematuria, unspecified

== ENCOUNTER → 2022-02-25 | Outpatient (REF) | payer OTHER | LOC: M LAB REF 16:25 | PROVIDERS: ATTEND Nurse Practitioner Family | DX: N76.0 Acute vaginitis (principal) ==

== ENCOUNTER → 2022-03-03 | Outpatient (REF) | payer OTHER ==
[2022-03-03 12:37] LABS: APPEARANCE, URINE MANUAL HAZY (CLEAR); BILIRUBIN, URINE MANUAL NEGATIVE (NEGATIVE); BLOOD URINE MANUAL POSITIVE (NEGATIVE); COLOR, URINE MANUAL YELLOW (YELLOW); GLUCOSE, URINE (UA) MANUAL NEGATIVE (NEGATIVE); KETONE, URINE MANUAL NEGATIVE (NEGATIVE); LEUKOCYTE ESTERASE, URINE MAN NEGATIVE (NEGATIVE); NITRITE, URINE MANUAL NEGATIVE (NEGATIVE); PH,URINE MAN 5.5 UNITS (5.0 - 7.0); PROTEIN, URINE MANUAL NEGATIVE (NEGATIVE); SPECIFIC GRAVITY,URINE MANUAL 1.021 (1.002-1.035); UROBILINOGEN, URINE MANUAL NORMAL (NORMAL)
[2022-03-03 12:52] LABS: BACTERIA, URINE MOD AMOUNT; HYALINE CAST, URINE NONE SEEN /lpf (0-1); SQUAMOUS EPITHELIAL CELL URINE LARGE AMOUNT /hpf (SMALL AMT)
[2022-03-03 12:53] LABS: MUCUS, URINE SMALL AMOUNT (NEGATIVE)
== END ==
LOC: M LAB REF 12:09
PROVIDERS: ATTEND Nurse Practitioner Family
DX: N89.8 Other specified noninflammatory disorders of vagina (principal)

== ENCOUNTER → 2022-03-03 | Outpatient (CLI) | payer OTHER | LOC: M LAB 16:30 | PROVIDERS: ATTEND Nurse Practitioner Family | DX: M54.16 Radiculopathy, lumbar region (principal) ==

== ENCOUNTER → 2022-04-25 | Outpatient (REF) | payer OTHER ==
[2022-04-25 12:46] LABS: URINE PREG TEST NEGATIVE (NEGATIVE)
[2022-04-25 12:49] LABS: APPEARANCE, URINE HAZY (CLEAR); BACTERIA, URINE AUTO NEGATIVE (NEGATIVE); BILIRUBIN, URINE AUTO NEGATIVE (NEGATIVE); BLOOD, URINE BLOOD 2+ (NEGATIVE); COLOR, URINE YELLOW (YELLOW); GLUCOSE, URINE (UA) AUTO NEGATIVE (NEGATIVE); KETONE, URINE AUTO NEGATIVE (NEGATIVE); LEUKOCYTE ESTERASE, URINE AUTO NEGATIVE (NEGATIVE); MUCUS, URINE SMALL (NEGATIVE); NITRITE, URINE AUTO NEGATIVE (NEGATIVE); PROTEIN, URINE AUTO NEGATIVE (NEGATIVE); RBC, URINE AUTO 14 /HPF (0-3); SPECIFIC GRAVITY URINE AUTO 1.021 (1.002-1.035); SQUAMOUS EPITHELIAL CELL UR AU 21 /HPF (0-6); UROBILINOGEN, URINE AUTO 0.2 mg/dL (0.0-2.0); WBC, URINE AUTO 0 /HPF (0-3)
== END ==
LOC: M LAB REF 12:18
PROVIDERS: ATTEND Nurse Practitioner Family
DX: R14.0 Abdominal distension (gaseous) (principal)

== ENCOUNTER → 2022-05-11 | Outpatient (CLI) | payer OTHER | LOC: M CARPUL 09:33 | PROVIDERS: ATTEND Nurse Practitioner Family | DX: R01.1 Cardiac murmur, unspecified (principal) ==

== ENCOUNTER → 2022-05-23 | Outpatient (REF) | payer OTHER, MEDICAID | LOC: M LAB REF 17:42 | PROVIDERS: ATTEND Physician Assistant Medical | DX: H92.11 Otorrhea, right ear (principal) ==

== ENCOUNTER → 2022-06-08 | Outpatient (CLI) | payer OTHER | LOC: M RAD 15:46 | PROVIDERS: ATTEND Physician Assistant Medical | DX: H92.03 Otalgia, bilateral (principal) ==

== ENCOUNTER → 2022-06-21 | Outpatient (REF) | payer OTHER ==
[2022-06-21 17:03] LABS: AMORPHOUS SEDIMENT SMALL (NEGATIVE); BACTERIA, URINE AUTO NEGATIVE (NEGATIVE); MUCUS, URINE SMALL (NEGATIVE); RBC, URINE AUTO 0 /HPF (0-3); SQUAMOUS EPITHELIAL CELL UR AU 1 /HPF (0-6); WBC, URINE AUTO 0 /HPF (0-3)
== END ==
LOC: M LAB REF 16:33
PROVIDERS: ATTEND Nurse Practitioner Family
DX: R31.29 Other microscopic hematuria (principal)

== ENCOUNTER → 2022-06-28 | Outpatient (REF) | payer OTHER ==
[2022-06-28 17:39] LABS: HCG, SERUM QUANTITATIVE 222.1 MIU/ML (<4.2)
[2022-06-28 17:45] LABS: HCG, SERUM QUALITATIVE POSITIVE (NEGATIVE)
== END ==
LOC: M LAB REF 16:31
PROVIDERS: ATTEND Nurse Practitioner Family
DX: Z32.01 Encounter for pregnancy test, result positive (principal); Z3A.00 Weeks of gestation of pregnancy not specified

== ENCOUNTER → 2022-08-17 | Outpatient (REF) | payer OTHER, MEDICAID | LOC: M LAB REF 16:17 | PROVIDERS: ATTEND Pediatrics | DX: B36.9 Superficial mycosis, unspecified (principal) ==

== ENCOUNTER → 2022-08-24 | Outpatient (CLI) | payer OTHER, MEDICAID ==
[2022-08-24 18:35] LABS: HEMATOCRIT 35.1 % (36.0-47.0); MEAN CORPUSCULAR HEMOGLOBIN 30.5 pg (27.0-33.0); MEAN CORPUSCULAR HGB CONC 34.2 g/dl (32.0-36.5); MEAN CORPUSCULAR VOLUME 89.1 fl (80.0-96.0); PLATELET COUNT, AUTOMATED 284 10^3/uL (150-450); RED BLOOD COUNT 3.94 10^6/uL (4.00-5.40); WHITE BLOOD COUNT 10.2 10^3/uL (4.0-10.0)
[2022-08-24 19:30] LABS: HIV 1&2 SCREEN NEGATIVE (NEGATIVE)
[2022-08-24 19:38] LABS: HEPATITIS C VIRUS ABY INDEX 0.08 INDEX (<0.8)
[2022-08-24 21:47] LABS: GC DNA AMPLIFICATION NEGATIVE (NEGATIVE)
== END ==
LOC: M LAB 17:10
PROVIDERS: ATTEND Obstetrics & Gynecology
DX: Z36.89 Encounter for other specified antenatal screening (principal); Z3A.00 Weeks of gestation of pregnancy not specified

== ENCOUNTER 2022-09-19 07:10 | Emergency (ER) | payer MEDICAID, OTHER ==
[~2022-09-19] VITALS: Ht 160 cm; Wt 81.3 kg
[2022-09-19] MEDS ORDERED: OMEP40CA4 PO (07:23)
[2022-09-19] MEDS ORDERED: LIDOCAINE 5% (LIDODERM) PATCH TD ONE (08:00)
[2022-09-19] MEDS: ACETAMINOPHEN 1000MG 100ML IV BAG IV ONE ×2 (08:17→08:26)
[2022-09-19 08:37] LABS: BASO % 0.1 % (0.0-1.0); EOS # 0.1 10^3/uL (0.0-0.5); EOS % 1.2 % (0.0-3.0); HEMATOCRIT 34.3 % (36.0-47.0); HEMOGLOBIN 11.7 g/dl (12.0-15.5); LYMPH # 1.5 10^3/uL (1.5-5.0); LYMPH % 15.1 % (24.0-44.0); MEAN CORPUSCULAR HEMOGLOBIN 30.5 pg (27.0-33.0); MEAN CORPUSCULAR HGB CONC 34.1 g/dl (32.0-36.5); MEAN CORPUSCULAR VOLUME 89.6 fl (80.0-96.0); MONO # 0.7 10^3/uL (0.0-0.8); MONO % 6.7 % (2.0-8.0); NEUTROPHILS # 7.8 10^3/uL (1.5-8.5); NEUTROPHILS % 76.5 % (36.0-66.0); PLATELET COUNT, AUTOMATED 246 10^3/uL (150-450); RED BLOOD COUNT 3.83 10^6/uL (4.00-5.40); WHITE BLOOD COUNT 10.2 10^3/uL (4.0-10.0)
[2022-09-19] MEDS ORDERED: ASPE4PAD TOP (09:50)
[2022-09-19 10:08] VITALS: BP 111/62; TEMP 97.8; O2SAT 100
== END 2022-09-19 10:15 | disposition home or self-care (01) ==
LOC: M ED 07:10
DX: O9A.212 Injury, poisoning and certain other consequences of external causes complicating pregnancy, second trimester (principal); O99.891 Other specified diseases and conditions complicating pregnancy; R10.2 Pelvic and perineal pain; W10.8XXA Fall (on) (from) other stairs and steps, initial encounter; Y92.009 Unspecified place in unspecified non-institutional (private) residence as the place of occurrence of the external cause; Z3A.16 16 weeks gestation of pregnancy; Z79.899 Other long term (current) drug therapy; Z88.8 Allergy status to other drugs, medicaments and biological substances

== ENCOUNTER → 2022-10-14 | Outpatient (REF) | payer OTHER, MEDICAID ==
[~2022-10-14] MED LIST changes: +ASPE4PAD TOP; +OMEP40CA4 PO
== END ==
LOC: M PLALAB 12:46
PROVIDERS: ATTEND Advanced Practice Midwife
DX: O34.211 Maternal care for low transverse scar from previous cesarean delivery (principal)

== ENCOUNTER → 2022-10-14 | Outpatient (CLI) | payer OTHER | LOC: M WHC 11:29 | PROVIDERS: ATTEND Specialist | DX: Z34.82 Encounter for supervision of other normal pregnancy, second trimester (principal) ==

== ENCOUNTER → 2022-12-05 | Outpatient (REF) | payer OTHER | LOC: M LAB REF 12:35 | PROVIDERS: ATTEND Nurse Practitioner Family | DX: J02.9 Acute pharyngitis, unspecified (principal) ==

== ENCOUNTER → 2022-12-28 | Outpatient (CLI) | payer OTHER ==
[2022-12-28 16:07] LABS: HEMATOCRIT 34.1 % (36.0-47.0); HEMOGLOBIN 11.3 g/dl (12.0-15.5); MEAN CORPUSCULAR HEMOGLOBIN 29.7 pg (27.0-33.0); MEAN CORPUSCULAR HGB CONC 33.1 g/dl (32.0-36.5); MEAN CORPUSCULAR VOLUME 89.5 fl (80.0-96.0); PLATELET COUNT, AUTOMATED 309 10^3/uL (150-450); RED BLOOD COUNT 3.81 10^6/uL (4.00-5.40)
[2022-12-28 17:19] LABS: CHLAMYDIA DNA AMPLIFICATION NEGATIVE (NEGATIVE); GC DNA AMPLIFICATION NEGATIVE (NEGATIVE)
== END ==
LOC: M PLALAB 10:29
PROVIDERS: ATTEND Advanced Practice Midwife
DX: Z34.92 Encounter for supervision of normal pregnancy, unspecified, second trimester (principal)

== ENCOUNTER → 2023-01-16 | Outpatient (REF) | payer OTHER, MEDICAID | LOC: M SFHCWAGY 12:23 | PROVIDERS: ATTEND Obstetrics & Gynecology | DX: O34.211 Maternal care for low transverse scar from previous cesarean delivery (principal) ==

== ENCOUNTER 2023-01-24 15:20 | Outpatient (CLI) | payer OTHER, MEDICAID ==
[~2023-01-24] VITALS: Ht 157.5 cm; Wt 85.0 kg
[2023-01-24 15:34] VITALS: BP 102/72
[2023-01-24] MEDS ORDERED: HOME MED LIST COMPLETE! XX SCH (15:40)
[2023-01-24] MEDS ORDERED: LACTATED RINGER'S 1000 ML IV STA (15:50)
[2023-01-24] MEDS ORDERED: LR 1,000 ML IV SCH (15:50)
[2023-01-24 16:34] LABS: HEMATOCRIT 34.9 % (36.0-47.0); HEMOGLOBIN 11.6 g/dl (12.0-15.5); MEAN CORPUSCULAR HEMOGLOBIN 28.3 pg (27.0-33.0); MEAN CORPUSCULAR HGB CONC 33.2 g/dl (32.0-36.5); MEAN CORPUSCULAR VOLUME 85.1 fl (80.0-96.0); PLATELET COUNT, AUTOMATED 339 10^3/uL (150-450); WHITE BLOOD COUNT 16.2 10^3/uL (4.0-10.0)
[2023-01-24 16:38] VITALS: BP 102/56
[2023-01-24 16:45] LABS: LIPASE 39 U/L (12-53)
[2023-01-24 16:47] LABS: AMYLASE 72 U/L (30-118)
[2023-01-24 16:48] LABS: ALKALINE PHOSPHATASE 131 U/L (46-116); ALT/SGPT 9 U/L (7.0-40); AST/SGOT 9 U/L (<34); BILIRUBIN,TOTAL 0.5 MG/DL (0.3-1.2); BLOOD UREA NITROGEN 6 MG/DL (9-23); CARBON DIOXIDE LEVEL 20 MMOL/L (20-31); CHLORIDE LEVEL 105 MMOL/L (98-107); CREATININE FOR GFR 0.41 MG/DL (0.55-1.30); GLOMERULAR FILTRATION RATE > 60.0 (>60); GLUCOSE, FASTING 72 MG/DL (60-100); POTASSIUM SERUM 3.8 MMOL/L (3.5-5.1); SODIUM LEVEL 136 MMOL/L (136-145); TOTAL PROTEIN 6.8 G/DL (5.7-8.2)
[2023-01-24 17:05] LABS: APPEARANCE, URINE HAZY (CLEAR); BACTERIA, URINE AUTO NEGATIVE (NEGATIVE); BILIRUBIN, URINE AUTO NEGATIVE (NEGATIVE); BLOOD, URINE BLOOD NEGATIVE (NEGATIVE); COLOR, URINE YELLOW (YELLOW); GLUCOSE, URINE (UA) AUTO NEGATIVE (NEGATIVE); KETONE, URINE AUTO 2+ mg/dL (NEGATIVE); LEUKOCYTE ESTERASE, URINE AUTO NEGATIVE (NEGATIVE); MUCUS, URINE SMALL (NEGATIVE); NITRITE, URINE AUTO NEGATIVE (NEGATIVE); PROTEIN, URINE AUTO 1+ mg/dL (NEGATIVE); RBC, URINE AUTO 3 /HPF (0-3); SPECIFIC GRAVITY URINE AUTO 1.024 (1.002-1.035); SQUAMOUS EPITHELIAL CELL UR AU 11 /HPF (0-6); UROBILINOGEN, URINE AUTO 0.2 mg/dL (0.0-2.0); WBC, URINE AUTO 1 /HPF (0-3)
[2023-01-24 17:11] LABS: INR 4.35; PROTHROMBIN TIME 39.9 SECONDS (12.5-14.5)
[2023-01-24 17:35] VITALS: BP 114/62
[2023-01-24 18:43] VITALS: BP 117/60
[2023-01-24 20:43] VITALS: BP 112/56
[2023-01-24 21:09] LABS: HEMATOCRIT 30.1 % (36.0-47.0); HEMOGLOBIN 10.2 g/dl (12.0-15.5); MEAN CORPUSCULAR HEMOGLOBIN 28.9 pg (27.0-33.0); MEAN CORPUSCULAR HGB CONC 33.9 g/dl (32.0-36.5); MEAN CORPUSCULAR VOLUME 85.3 fl (80.0-96.0); PLATELET COUNT, AUTOMATED 296 10^3/uL (150-450); RED BLOOD COUNT 3.53 10^6/uL (4.00-5.40); WHITE BLOOD COUNT 13.6 10^3/uL (4.0-10.0)
[2023-01-24 21:33] LABS: INR 1.1; PROTHROMBIN TIME 13.9 SECONDS (12.5-14.5)
[2023-01-24 21:34] LABS: PARTIAL THROMBOPLASTIN TIME 24.8 SECONDS (24.8-34.2)
== END 2023-01-24 22:20 | disposition home or self-care (01) ==
LOC: M LDO 15:20
PROVIDERS: ATTEND Obstetrics & Gynecology
DX: O21.8 Other vomiting complicating pregnancy (principal); O26.893 Other specified pregnancy related conditions, third trimester; O34.211 Maternal care for low transverse scar from previous cesarean delivery; O09.A3 Supervision of pregnancy with history of molar pregnancy, third trimester; R10.30 Lower abdominal pain, unspecified; Z87.59 Personal history of other complications of pregnancy, childbirth and the puerperium; Z3A.34 34 weeks gestation of pregnancy
CPT/HCPCS: 36415; 59025; 76815; 76816; 76820; 80053; 81001; 82150; 83690; 85027; 85384; 85460; 85610; 85730; G0463

== ENCOUNTER → 2023-01-31 | Outpatient (REF) | payer OTHER, MEDICAID | LOC: M SFHCWAGY 16:53 | PROVIDERS: ATTEND Obstetrics & Gynecology | DX: L02.31 Cutaneous abscess of buttock (principal) ==

== ENCOUNTER → 2023-02-14 | Outpatient (REF) | payer OTHER, MEDICAID | LOC: M SFHCWAGY 16:58 | PROVIDERS: ATTEND Obstetrics & Gynecology | DX: O34.211 Maternal care for low transverse scar from previous cesarean delivery (principal); Z36.89 Encounter for other specified antenatal screening; Z3A.00 Weeks of gestation of pregnancy not specified ==

== ENCOUNTER 2023-02-27 05:58 | Inpatient (IN) | payer MEDICAID, OTHER ==
[~2023-02-27] VITALS: Ht 160 cm; Wt 89.0 kg
[2023-02-27] VITALS (10 sets, daily range): BP systolic 114–137; BP diastolic 68–80; TEMP 97.2; O2SAT 98–100
[2023-02-27] MEDS ORDERED: BICITRA 30ML SOLN UDC PO ONE (06:00)
[2023-02-27] MEDS ORDERED: ceFAZolin SOD 2 GM in IV 1 EA IV ONE (06:00)
[2023-02-27] MEDS ORDERED: LACTATED RINGER'S 1000 ML IV STA (06:00)
[2023-02-27 06:42] LABS: HEMATOCRIT 33.3 % (36.0-47.0); MEAN CORPUSCULAR HEMOGLOBIN 26.9 pg (27.0-33.0); MEAN CORPUSCULAR VOLUME 81.4 fl (80.0-96.0); PLATELET COUNT, AUTOMATED 351 10^3/uL (150-450); RED BLOOD COUNT 4.09 10^6/uL (4.00-5.40); WHITE BLOOD COUNT 10.3 10^3/uL (4.0-10.0)
[2023-02-27] MEDS ORDERED: HOME MED LIST COMPLETE! XX SCH (07:00)
[2023-02-27] MEDS: LR 1,000 ML IV SCH ×5 (07:06→22:00)
[2023-02-27] MEDS ORDERED: OXYTOCIN 30UNITS IN 0.9% NaCl 500ML IV BAG As Ordered ONE ×2 (07:19→09:12)
[2023-02-27] MEDS ORDERED: MORPHINE PRES-FREE INJ 10 MG/10 ML VIAL As Ordered ONE (07:19)
[2023-02-27] MEDS ORDERED: ONDANSETRON 4MG 2ML VIAL As Ordered ONE (07:21)
[2023-02-27] MEDS ORDERED: ePHEDrine SULFATE 25 MG/5 ML(5MG/ML) SYRINGE As Ordered ONE (07:59)
[2023-02-27] MEDS ORDERED: KETOROLAC 60MG 2ML VIAL As Ordered ONE (08:08)
[2023-02-27] MEDS ORDERED: ACETAMINOPHEN 1000MG 100ML IV BAG As Ordered ONE (08:08)
[2023-02-27] MEDS ORDERED: fentaNYL 100 MCG/2 ML INJECTION As Ordered ONE (08:14)
[2023-02-27] MEDS ORDERED: propofoL 200 MG/20 ML VIAL As Ordered ONE (08:25)
[2023-02-27] MEDS ORDERED: MORPHINE 4 MG/ML 1ML VIAL IV PRN (08:55)
[2023-02-27] MEDS ORDERED: ONDANSETRON 4MG 2ML VIAL IV PRN ×2 (08:55→09:05)
[2023-02-27] MEDS ORDERED: PERCOCET 5MG/325MG TAB PO PRN (08:55)
[2023-02-27] MEDS ORDERED: SIMETHICONE 80MG CHEW TAB PO PRN (08:55)
[2023-02-27] MEDS ORDERED: OXYTOCIN DRIP 30 UNITS in IV 1 EA IV SCH (08:55)
[2023-02-27] MEDS ORDERED: RHOGAM 300MCG (1500IU) INJ IM SCH (08:55)
[2023-02-27] MEDS ORDERED: ANUSOL HC CREAM 30GM TOP PRN (08:55)
[2023-02-27] MEDS ORDERED: ACETAMINOPHEN 500 MG TAB PO PRN (08:55)
[2023-02-27] MEDS ORDERED: COLA100C5 PO (09:04)
[2023-02-27] MEDS ORDERED: IBUP80TA PO (09:04)
[2023-02-27] MEDS ORDERED: PERCOCET PO (09:04)
[2023-02-27] MEDS ORDERED: fentaNYL 100 MCG/2 ML INJECTION IV PRN (09:05)
[2023-02-27] MEDS ORDERED: HYDROMORPHONE HCL 0.5 MG/ 0.5 ML SYRINGE IV PRN (09:05)
[2023-02-27] MEDS ORDERED: diphenhydrAMINE 50MG/ML VIAL IV PRN (09:05)
[2023-02-27] MEDS ORDERED: oxyCODONE 5MG TAB PO PRN (09:05)
[2023-02-27] MEDS ORDERED: NALOXONE INJ 0.4MG/1ML VIAL IV PRN ×2 (09:05)
[2023-02-27] MEDS ORDERED: METOCLOPRAMIDE INJ 10MG/2ML VIAL IV PRN (09:05)
[2023-02-27] MEDS ORDERED: **NOTE PATIENT COMMENT** MISC XX SCH (09:05)
[2023-02-27] MEDS: SLF 3 ML SYR IV SCH ×2 (11:23→17:05)
[2023-02-27] MEDS: DOCUSATE SODIUM 100MG CAPSULE PO SCH ×2 (11:24→21:06)
[2023-02-27] MEDS: PRENATAL VITAMINS CHEWABLE TABLET PO SCH (11:24)
[2023-02-27] MEDS ORDERED: KETOROLAC 30 MG/ML 1ML VIAL IV SCH (14:00)
[2023-02-27] MEDS: KETOROLAC 30 MG/ML 1ML VIAL IV SCH ×2 (15:36→21:06)
[2023-02-27] MEDS ORDERED: CALCIUM CARBONATE 500 MG CHEW U/D PO PRN (21:30)
[2023-02-27] MEDS ORDERED: OMEPRAZOLE 20MG CAP PO ONE (21:30)
[2023-02-28 02:00] VITALS: BP 107/55; O2SAT 98
[2023-02-28] MEDS: KETOROLAC 30 MG/ML 1ML VIAL IV SCH (02:15)
[2023-02-28] MEDS: SLF 3 ML SYR IV SCH (02:16)
[2023-02-28 06:00] VITALS: BP 119/71; O2SAT 98
[2023-02-28 07:24] LABS: HEMATOCRIT 26.9 % (36.0-47.0); MEAN CORPUSCULAR HEMOGLOBIN 27.1 pg (27.0-33.0); MEAN CORPUSCULAR HGB CONC 32.3 g/dl (32.0-36.5); MEAN CORPUSCULAR VOLUME 83.8 fl (80.0-96.0); PLATELET COUNT, AUTOMATED 282 10^3/uL (150-450); RED BLOOD COUNT 3.21 10^6/uL (4.00-5.40); WHITE BLOOD COUNT 13.6 10^3/uL (4.0-10.0)
[2023-02-28 07:25] LABS: HEMOGLOBIN 8.7 g/dl (12.0-15.5)
[2023-02-28] MEDS: DOCUSATE SODIUM 100MG CAPSULE PO SCH ×2 (08:14→20:26)
[2023-02-28] MEDS: PRENATAL VITAMINS CHEWABLE TABLET PO SCH (08:14)
[2023-02-28 10:00] VITALS: BP 123/77; O2SAT 100
[2023-02-28] MEDS: IBUPROFEN 800 MG TAB PO SCH ×3 (11:18→19:17)
[2023-02-28 14:00] VITALS: BP 114/58; O2SAT 98
[2023-02-28] MEDS: PERCOCET 5MG/325MG TAB PO PRN ×2 (14:55→19:21)
[2023-02-28 18:00] VITALS: BP 132/61; O2SAT 97
[2023-02-28] MEDS ORDERED: OMEPRAZOLE 20MG CAP PO SCH (21:00)
[2023-02-28 22:00] VITALS: BP 118/65; O2SAT 99
[2023-03-01 02:00] VITALS: BP 131/60
[2023-03-01] MEDS: IBUPROFEN 800 MG TAB PO SCH ×2 (03:05→11:06)
[2023-03-01 05:30] VITALS: BP 112/69
[2023-03-01] MEDS ORDERED: MEASLES,MUMPS,RUBELLA VACCINE INJ (MMR-II) SC.IMMUN ONE (09:00)
[2023-03-01] MEDS: DOCUSATE SODIUM 100MG CAPSULE PO SCH (09:21)
[2023-03-01] MEDS: PRENATAL VITAMINS CHEWABLE TABLET PO SCH (09:21)
== END 2023-03-01 13:53 | disposition home or self-care (01) | DRG 540 ==
LOC: EEVIPCON 05:58 → M LDI 05:58 → M OBS 10:21
PROVIDERS: ADMIT Obstetrics & Gynecology; ATTEND Obstetrics & Gynecology
PROC: 10D00Z1 Extraction of Products of Conception, Low, Open Approach (ICD-10-PCS; principal; 2023-02-27 07:30)
DX: O34.211 Maternal care for low transverse scar from previous cesarean delivery (principal); Z37.0 Single live birth; Z3A.39 39 weeks gestation of pregnancy

== ENCOUNTER → 2023-04-24 | Outpatient (REF) | payer OTHER, MEDICAID ==
[~2023-04-24] MED LIST changes: +COLA100C5 PO
[2023-04-24 18:49] LABS: BASO % 0.3 % (0.0-1.0); EOS # 0.2 10^3/uL (0.0-0.5); HEMATOCRIT 36.7 % (36.0-47.0); HEMOGLOBIN 11.5 g/dl (12.0-15.5); LYMPH # 2.7 10^3/uL (1.5-5.0); LYMPH % 33.7 % (24.0-44.0); MEAN CORPUSCULAR HEMOGLOBIN 25.8 pg (27.0-33.0); MEAN CORPUSCULAR HGB CONC 31.3 g/dl (32.0-36.5); MEAN CORPUSCULAR VOLUME 82.5 fl (80.0-96.0); MONO # 0.6 10^3/uL (0.0-0.8); NEUTROPHILS # 4.4 10^3/uL (1.5-8.5); NEUTROPHILS % 55.7 % (36.0-66.0); PLATELET COUNT, AUTOMATED 405 10^3/uL (150-450); RED BLOOD COUNT 4.45 10^6/uL (4.00-5.40)
[2023-04-24 19:16] LABS: PERCENT SATURATION 6.5 % (13.2-45.0)
[2023-04-24 19:17] LABS: FERRITIN 9.2 NG/ML (7.3-270.7)
[2023-04-24 19:18] LABS: FOLATE 11.3 NG/ML (>5.4)
== END ==
LOC: M LAB REF 18:09
PROVIDERS: ATTEND Nurse Practitioner Family
DX: D64.9 Anemia, unspecified (principal)

== ENCOUNTER → 2023-05-15 | Outpatient (REF) | payer OTHER, MEDICAID | LOC: M LAB REF 12:10 | PROVIDERS: ATTEND Nurse Practitioner Family | DX: J02.9 Acute pharyngitis, unspecified (principal) ==

== ENCOUNTER → 2023-08-16 | Outpatient (REF) | payer OTHER, MEDICAID ==
[~2023-08-16] MED LIST changes: +ONDA-282 PO; +ONDA-284 PO; -ONDA4TAB6 PO; -ONDA8TAB8 PO
[2023-08-18 23:42] LABS: TISSUE TRANSGLUTAMINASE IgA < 1.0 U/mL (<15.0); TISSUE TRANSGLUTAMINASE IgG < 1.0 U/mL (<15.0)
== END ==
LOC: M LAB REF 16:11
PROVIDERS: ATTEND Nurse Practitioner Family
DX: E61.1 Iron deficiency (principal)

== ENCOUNTER → 2023-08-31 | Outpatient (REF) | payer OTHER, MEDICAID ==
[2023-08-31 17:11] LABS: PERCENT SATURATION 12.8 % (13.2-45.0)
[2023-08-31 17:14] LABS: THYROID STIMULATING HORMONE 2.247 uIU/ML (0.55-4.78)
== END ==
LOC: M LAB REF 16:20
PROVIDERS: ATTEND Nurse Practitioner Family
DX: E61.1 Iron deficiency (principal); R53.83 Other fatigue

== ENCOUNTER → 2023-10-06 | Outpatient (REF) | payer OTHER, MEDICAID ==
[2023-10-06 13:17] LABS: APPEARANCE, URINE CLEAR (CLEAR); BACTERIA, URINE AUTO NEGATIVE (NEGATIVE); BILIRUBIN, URINE AUTO NEGATIVE (NEGATIVE); BLOOD, URINE BLOOD 1+ (NEGATIVE); COLOR, URINE YELLOW (YELLOW); GLUCOSE, URINE (UA) AUTO NEGATIVE (NEGATIVE); KETONE, URINE AUTO NEGATIVE (NEGATIVE); LEUKOCYTE ESTERASE, URINE AUTO NEGATIVE (NEGATIVE); MUCUS, URINE SMALL (NEGATIVE); NITRITE, URINE AUTO NEGATIVE (NEGATIVE); PROTEIN, URINE AUTO NEGATIVE (NEGATIVE); RBC, URINE AUTO 4 /HPF (0-3); SPECIFIC GRAVITY URINE AUTO 1.019 (1.002-1.035); SQUAMOUS EPITHELIAL CELL UR AU 1 /HPF (0-6); UROBILINOGEN, URINE AUTO 0.2 mg/dL (0.0-2.0); WBC, URINE AUTO 1 /HPF (0-3)
[2023-10-06 17:35] LABS: BASO % 0.3 % (0.0-1.0); EOS # 0.2 10^3/uL (0.0-0.5); EOS % 2.2 % (0.0-3.0); HEMATOCRIT 42.5 % (36.0-47.0); HEMOGLOBIN 13.9 g/dl (12.0-15.5); LYMPH # 2.3 10^3/uL (1.5-5.0); LYMPH % 23.1 % (24.0-44.0); MEAN CORPUSCULAR HEMOGLOBIN 29.6 pg (27.0-33.0); MEAN CORPUSCULAR HGB CONC 32.7 g/dl (32.0-36.5); MEAN CORPUSCULAR VOLUME 90.4 fl (80.0-96.0); MONO # 0.8 10^3/uL (0.0-0.8); NEUTROPHILS # 6.6 10^3/uL (1.5-8.5); NEUTROPHILS % 65.9 % (36.0-66.0); PLATELET COUNT, AUTOMATED 313 10^3/uL (150-450); WHITE BLOOD COUNT 10.1 10^3/uL (4.0-10.0)
[2023-10-06 17:45] LABS: ERYTHROCYTE SEDIMENTATION RATE 20 mm/hr (0-20)
[2023-10-06 18:15] LABS: BLOOD UREA NITROGEN 11 MG/DL (9-23); CALCIUM LEVEL 8.8 MG/DL (8.5-10.1); CARBON DIOXIDE LEVEL 23 MMOL/L (20-31); CHLORIDE LEVEL 106 MMOL/L (98-107); CREATININE FOR GFR 0.56 MG/DL (0.55-1.30); GLOMERULAR FILTRATION RATE > 60.0 (>60); GLUCOSE, FASTING 82 MG/DL (60-100); POTASSIUM SERUM 4.4 MMOL/L (3.5-5.1); SODIUM LEVEL 136 MMOL/L (136-145)
[2023-10-06 18:18] LABS: RHEUMATOID FACTOR QUANT 5.7 IU/ML (<14)
== END ==
LOC: M LAB REF 12:34
PROVIDERS: ATTEND Nurse Practitioner Family
DX: R10.31 Right lower quadrant pain (principal); M54.50 Low back pain, unspecified; Z82.61 Family history of arthritis

== ENCOUNTER → 2023-11-07 | Outpatient (REF) | payer OTHER, MEDICAID ==
[2023-11-07 17:55] LABS: APPEARANCE, URINE CLEAR (CLEAR); BACTERIA, URINE AUTO NEGATIVE (NEGATIVE); BILIRUBIN, URINE AUTO NEGATIVE (NEGATIVE); BLOOD, URINE BLOOD NEGATIVE (NEGATIVE); COLOR, URINE YELLOW (YELLOW); GLUCOSE, URINE (UA) AUTO NEGATIVE (NEGATIVE); KETONE, URINE AUTO NEGATIVE (NEGATIVE); LEUKOCYTE ESTERASE, URINE AUTO NEGATIVE (NEGATIVE); MUCUS, URINE SMALL (NEGATIVE); NITRITE, URINE AUTO NEGATIVE (NEGATIVE); PROTEIN, URINE AUTO NEGATIVE (NEGATIVE); RBC, URINE AUTO 0 /HPF (0-3); SPECIFIC GRAVITY URINE AUTO 1.017 (1.002-1.035); SQUAMOUS EPITHELIAL CELL UR AU 0 /HPF (0-6); UROBILINOGEN, URINE AUTO 0.2 mg/dL (0.0-2.0); WBC, URINE AUTO 0 /HPF (0-3)
== END ==
LOC: M LAB REF 16:12
PROVIDERS: ATTEND Nurse Practitioner Family
DX: R30.0 Dysuria (principal)

== ENCOUNTER 2023-11-28 17:06 | Emergency (ER) | payer MEDICAID, OTHER ==
[~2023-11-28] VITALS: Ht 160 cm; Wt 78.8 kg
[2023-11-28 17:11] VITALS: BP 137/84; TEMP 98.2; O2SAT 99
[2023-11-28] MEDS ORDERED: BUPR150T12 (17:13)
[2023-11-28] MEDS ORDERED: FERR325T19 (17:13)
[2023-11-28] MEDS ORDERED: COLA100C5 PO (17:49)
[2023-11-28] MEDS ORDERED: MIRA3350 PO (17:49)
== END 2023-11-28 18:05 | disposition home or self-care (01) ==
LOC: M ED 17:06
DX: K60.0 Acute anal fissure (principal); K62.5 Hemorrhage of anus and rectum; F41.9 Anxiety disorder, unspecified; Z79.899 Other long term (current) drug therapy; Z88.8 Allergy status to other drugs, medicaments and biological substances

== ENCOUNTER → 2023-12-06 | Outpatient (CLI) | payer MEDICARE, MEDICAID ==
[~2023-12-06] MED LIST changes: +BUPR150T12; +FERR325T19; +MIRA3350 PO
== END ==
LOC: M RAD 11:34
PROVIDERS: ATTEND Nurse Practitioner Family
DX: R10.31 Right lower quadrant pain (principal)

== ENCOUNTER → 2023-12-21 | Outpatient (REF) | payer MEDICARE, MEDICAID, OTHER ==
[2023-12-24 02:00] LABS: HPV APTIMA Not Detected (Not Detected)
== END ==
LOC: M SFHCWAGY 12:39
PROVIDERS: ATTEND Obstetrics & Gynecology
DX: Z12.4 Encounter for screening for malignant neoplasm of cervix (principal)

== ENCOUNTER 2023-12-27 12:55 | Outpatient (CLI) | payer OTHER ==
[~2023-12-27] VITALS: Ht 160 cm; Wt 78.2 kg
[2023-12-27 12:55] VITALS: BP 115/70; O2SAT 95
[~2023-12-27 12:55] MED LIST changes: +ALBUTEROL SULFATE 2.5MG/0.5ML INH NEB SOLN INH PRN; +EPINEPHrine INJ 1 MG/ML 1ML AMP IM PRN; +NS 1,000 ML IV SCH; +diphenhydrAMINE 50MG/ML VIAL IV PRN; +methylPREDNISolone 125MG 2ML VIAL IV PRN
[2023-12-27] MEDS: IRON SUCROSE 300 MG in NS 250 ML IV ONE (13:53)
[2023-12-27 15:30] VITALS: BP 143/90; O2SAT 93
== END 2023-12-27 15:50 ==
LOC: M INFU 12:55
PROVIDERS: ATTEND Internal Medicine Hematology
DX: D50.9 Iron deficiency anemia, unspecified (principal); Z88.8 Allergy status to other drugs, medicaments and biological substances

== ENCOUNTER 2024-01-10 16:10 | Outpatient (CLI) | payer OTHER ==
[~2024-01-10] VITALS: Ht 160 cm; Wt 80.0 kg
[2024-01-10 16:15] VITALS: BP 127/66; O2SAT 95
[2024-01-10] MEDS: IRON SUCROSE 300 MG in NS 250 ML IV ONE (16:34)
[2024-01-10 18:03] VITALS: BP 127/81; O2SAT 96
== END 2024-01-10 18:10 ==
LOC: M INFU 16:10
PROVIDERS: ATTEND Internal Medicine Hematology
DX: D50.9 Iron deficiency anemia, unspecified (principal); Z88.8 Allergy status to other drugs, medicaments and biological substances
CPT/HCPCS: 96365; J1756

== ENCOUNTER → 2024-03-15 | Outpatient (CLI) | payer OTHER ==
[~2024-03-15] MED LIST changes: -ALBUTEROL SULFATE 2.5MG/0.5ML INH NEB SOLN INH PRN; -EPINEPHrine INJ 1 MG/ML 1ML AMP IM PRN; -NS 1,000 ML IV SCH; -diphenhydrAMINE 50MG/ML VIAL IV PRN; -methylPREDNISolone 125MG 2ML VIAL IV PRN
[2024-03-15 17:00] LABS: BASO % 0.4 % (0.0-1.0); EOS # 0.2 10^3/uL (0.0-0.5); EOS % 1.8 % (0.0-3.0); HEMATOCRIT 42.5 % (36.0-47.0); HEMOGLOBIN 14.5 g/dl (12.0-15.5); LYMPH # 2.2 10^3/uL (1.5-5.0); LYMPH % 25.9 % (24.0-44.0); MEAN CORPUSCULAR HGB CONC 34.1 g/dl (32.0-36.5); MEAN CORPUSCULAR VOLUME 93.8 fl (80.0-96.0); MONO # 0.7 10^3/uL (0.0-0.8); MONO % 8.6 % (2.0-8.0); NEUTROPHILS # 5.4 10^3/uL (1.5-8.5); NEUTROPHILS % 62.9 % (36.0-66.0); PLATELET COUNT, AUTOMATED 241 10^3/uL (150-450); RED BLOOD COUNT 4.53 10^6/uL (4.00-5.40); WHITE BLOOD COUNT 8.6 10^3/uL (4.0-10.0)
[2024-03-15 17:23] LABS: FERRITIN 94.8 NG/ML (7.3-270.7)
== END ==
LOC: M WUC 12:36
PROVIDERS: ATTEND Internal Medicine Hematology
DX: D50.8 Other iron deficiency anemias (principal)

== ENCOUNTER → 2024-03-22 | Outpatient (REF) | payer OTHER, MEDICAID | LOC: M LAB REF 16:29 | PROVIDERS: ATTEND Nurse Practitioner Family | DX: R30.0 Dysuria (principal) ==

== ENCOUNTER → 2024-04-22 | Outpatient (REF) | payer OTHER, MEDICAID ==
[2024-04-22 18:46] LABS: APPEARANCE, URINE CLEAR (CLEAR); BACTERIA, URINE AUTO NEGATIVE (NEGATIVE); BILIRUBIN, URINE AUTO NEGATIVE (NEGATIVE); BLOOD, URINE BLOOD 2+ (NEGATIVE); COLOR, URINE YELLOW (YELLOW); GLUCOSE, URINE (UA) AUTO NEGATIVE (NEGATIVE); KETONE, URINE AUTO NEGATIVE (NEGATIVE); LEUKOCYTE ESTERASE, URINE AUTO NEGATIVE (NEGATIVE); MUCUS, URINE SMALL (NEGATIVE); NITRITE, URINE AUTO NEGATIVE (NEGATIVE); PROTEIN, URINE AUTO NEGATIVE (NEGATIVE); RBC, URINE AUTO 14 /HPF (0-3); SPECIFIC GRAVITY URINE AUTO 1.018 (1.002-1.035); SQUAMOUS EPITHELIAL CELL UR AU 0 /HPF (0-6); UROBILINOGEN, URINE AUTO 0.2 mg/dL (0.0-2.0); WBC, URINE AUTO 1 /HPF (0-3)
== END ==
LOC: M LAB REF 17:09
PROVIDERS: ATTEND Pediatrics
DX: R31.29 Other microscopic hematuria (principal); N92.6 Irregular menstruation, unspecified

== ENCOUNTER → 2024-05-07 | Outpatient (REF) | payer OTHER, MEDICAID | LOC: M SMT 16:58 | PROVIDERS: ATTEND Specialist | DX: N89.8 Other specified noninflammatory disorders of vagina (principal) ==

== ENCOUNTER → 2024-05-14 | Outpatient (REF) | payer OTHER, MEDICAID | LOC: M LAB REF 18:01 | PROVIDERS: ATTEND Student in an Organized Health Care Education/Training Program | DX: R30.0 Dysuria (principal) ==

== ENCOUNTER → 2024-05-17 | Outpatient (CLI) | payer OTHER | LOC: M RAD 11:48 | PROVIDERS: ATTEND Pediatrics | DX: R31.29 Other microscopic hematuria (principal) ==

== ENCOUNTER → 2024-10-09 | Outpatient (CLI) | payer OTHER | LOC: M RAD 17:17 | PROVIDERS: ATTEND Pediatrics | DX: M54.50 Low back pain, unspecified (principal) ==

== ENCOUNTER → 2025-01-15 | Outpatient (REF) | payer OTHER, MEDICAID ==
[2025-01-15 12:22] LABS: BASO # 0.0 10^3/uL (0.0-0.2); BASO % 0.4 % (0.0-1.0); EOS # 0.2 10^3/uL (0.0-0.5); EOS % 2.6 % (0.0-3.0); LYMPH # 2.0 10^3/uL (1.5-5.0); LYMPH % 25.1 % (24.0-44.0); MONO # 0.6 10^3/uL (0.0-0.8); MONO % 7.1 % (2.0-8.0); NEUTROPHILS # 5.2 10^3/uL (1.5-8.5); NEUTROPHILS % 64.7 % (36.0-66.0); PLATELET COUNT, AUTOMATED 254 10^3/uL (150-450)
[2025-01-15 12:31] LABS: HCG, SERUM QUALITATIVE NEGATIVE (NEGATIVE)
== END ==
LOC: M LAB REF 11:54
PROVIDERS: ATTEND Pediatrics
DX: R53.82 Chronic fatigue, unspecified (principal)